=== PATIENT | female | born 2000 | race Caucasian/White ===

== ENCOUNTER 2019-12-17 15:47 | Emergency (ER) | payer OTHER ==
--- NOTE | 2019-12-17 16:14 | EDPHYS ---
Physician Documentation [facility] Name: Chelly Grant Age: 19 yrs Sex: Female : 2000 Arrival Date: 12/17/2019 Time: 15:52 Bed 23 Private MD: ED Physician Emerson Franklin HPI: 12/16 16:07 This 19 yrs old Female presents to ER via Ambulatory with complaints of 22 jmm wks , Vaginal Bleeding, Back Pain, Abdominal Pain. 16:07 The patient presents to the emergency department with abdominal pain, vaginal bleeding. jmm The estimated gestational age is 22 weeks. Associated signs and symptoms: Pertinent positives: back pain. This is a 19 year old female with no chronic medical conditions currently 22 week IUP that presents to the ED with complaints of pelvic cramping, low back pain after passing a blood clot. Denies vomiting, diarrhea, fever. . 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 - Social history:: Smoking status: Patient denies any tobacco usage or history of. Patient/guardian denies using street drugs. ROS: 16:07 Constitutional: Negative for fever, chills, and weight loss, Cardiovascular: Negative jmm for chest pain, palpitations, and edema, Respiratory: Negative for shortness of breath, cough, wheezing, and pleuritic chest pain. 16:07 Abdomen/GI: Positive for abdominal pain. 16:07 : Positive for pelvic pain. 16:07 All other systems are negative. Exam: 16:07 Constitutional: This is a well developed, well nourished patient who is awake, alert, jmm and in no acute distress. Head/Face: atraumatic. Eyes: EOMI, no conjunctival erythema appreciated ENT: Moist Mucus Membranes Neck: Trachea midline, Supple Chest/axilla: Normal chest wall appearance and motion. Cardiovascular: Regular rate and rhythm. No edema appreciated Respiratory: Normal respirations, no respiratory distress appreciated Abdomen/GI: Non distended, soft Back: Normal ROM Skin: General appearance color normal MS/ Extremity: Moves all extremities, no obvious deformities appreciated, no edema noted to the lower extremities Neuro: Awake and alert, normal gait Psych: Behavior is normal, Mood is normal, Patient is cooperative and pleasant 16:07 Abdomen/GI: Inspection: gravid appearance, Bowel sounds: normal, Palpation: soft, nontender, in all quadrants. 16:07 Back: CVA tenderness, is absent. Vital Signs: 16:03 BP 127 / 70; Pulse 75; Resp 17; Temp 98.9; Pulse Ox 97% ; Weight 71.21 kg; Height 5 ft. ll1 4 in. (162.56 cm); Pain 0/10; 16:03 Body Mass Index 26.95 (71.21 kg, 162.56 cm) ll1 MDM: 16:07 Patient medically screened. [facility] 16:07 Data reviewed: vital signs, nurses notes. [facility] 16:07 Counseling: I had a detailed discussion with the patient and/or guardian regarding: the [facility] historical points, exam findings, and any diagnostic results supporting the discharge/admit diagnosis. ED course: Abdomen is benign, VS WNL. Patient is advised to be further evaluation by L and D. . Administered Medications: No medications were administered Disposition: 12/17/19 16:13 Discharged to Home. Impression: Abnormal uterine and vaginal bleeding, unspecified. - Condition is Stable. - Medication Reconciliation Form, Thank You Letter, Antibiotic Education, Prescription Opioid Use form. - Follow up: Private Physician; When: Labor and Delivery; Reason: Recheck today's complaints, Continuance of care, Re-evaluation by your physician. Addendum: 12/18/2019 17:03 Co-signature as Attending Physician, Emerson Franklin MD I agree with the assessment and k dr plan of care. Signatures: Emerson Franklin MD MD [facility] Russell Falk PA PA [facility] Erica Fuller, MATEO RN Zuhair Mayorga RN RN ll1 Corrections: (The following items were deleted from the chart) 12/16 16:19 16:13 12/17/2019 16:13 Discharged to Home. Impression: Abnormal uterine and vaginal hb bleeding, unspecified. Condition is Stable. Forms are Medication Reconciliation Form, Thank You Letter, Antibiotic Education, Prescription Opioid Use. Follow up: Private Physician; When: Labor and Delivery; Reason: Recheck today's complaints, Continuance of care, Re-evaluation by your physician. [facility]
--- NOTE | 2019-12-17 16:14 | ER ---
Nurse's Notes [facility] Name: Chelly Grant Age: 19 yrs Sex: Female : 2000 Arrival Date: 12/17/2019 Time: 15:52 Bed 23 Private MD: Diagnosis: Abnormal uterine and vaginal bleeding, unspecified Presentation: 12/16 16:03 Chief complaint: Patient states: 22 weeks . G1, P0. + movement. Had large ll1 blood clot pass after urinating today. + cramps earlier, non now. Coronavirus screen: Client denies travel out of the [place] in the last 14 days. At this time, the client does not indicate any symptoms associated with coronavirus-19. Ebola Screen: Patient denies travel to an Ebola-affected area in the 21 days before illness onset. Initial Sepsis Screen: Does the patient meet any 2 criteria? No. Patient's initial sepsis screen is negative. Risk Assessment: Do you want to hurt yourself or someone else? Patient reports no desire to harm self or others. Onset of symptoms was December 17, 2019. 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 - Social history:: Smoking status: Patient denies any tobacco usage or history of. Patient/guardian denies using street drugs. Screenin:08 Abuse screen: Denies threats or abuse. Denies injuries from another. Nutritional hb screening: No deficits noted. Tuberculosis screening: No symptoms or risk factors identified. Fall Risk None identified. Assessment: 16:08 General: Appears in no apparent distress. Behavior is calm, cooperative. Pain: Denies hb pain. Neuro: Level of Consciousness is awake, alert, obeys commands, Oriented to person, place, time, situation. Cardiovascular: Capillary refill < 3 seconds Patient's skin is warm and dry. Respiratory: Respiratory effort is even, unlabored, Respiratory pattern is regular, symmetrical. GI: No signs and/or symptoms were reported involving the gastrointestinal system. : Reports vaginal bleeding that is. EENT: No signs and/or symptoms were reported regarding the EENT system. Derm: Skin is pink, warm \T\ dry. Musculoskeletal: No signs and/or symptoms reported regarding the musculoskeletal system. Vital Signs: 16:03 BP 127 / 70; Pulse 75; Resp 17; Temp 98.9; Pulse Ox 97% ; Weight 71.21 kg; Height 5 ft. ll1 4 in. (162.56 cm); Pain 0/10; 16:03 Body Mass Index 26.95 (71.21 kg, 162.56 cm) 1 ED Course: 15:52 Patient arrived in ED. mr 16:05 Triage completed. 1 16:05 Arm band placed on Patient placed in an exam room, on a stretcher. [facility] 16:07 Russell Falk PA is PHCP. [facility] 16:07 Emerson Franklin MD is Attending Physician. [facility] 16:08 Erica Fuller, RN is Primary Nurse. hb 16:08 Patient has correct armband on for positive identification. hb 16:08 No provider procedures requiring assistance completed. Patient did not have IV access hb during this emergency room visit. Administered Medications: No medications were administered Outcome: 16:08 Discharged to via wheelchair to L\T\D hb 16:08 Condition: stable 16:08 Instructed on follow up and referral plans. Demonstrated understanding of instructions, follow-up care. 16:13 Discharge ordered by . [facility] 16:19 Patient left the ED. hb Signatures: Russell Falk PA PA jmm BillFe mr Erica Fuller, RN RN Zuhair Perry RN RN [facility]
== END 2019-12-17 16:19 | disposition home or self-care (01) ==
LOC: ER 15:47
DX: O46.92 Antepartum hemorrhage, unspecified, second trimester (principal); Z3A.22 22 weeks gestation of pregnancy
CPT/HCPCS: 99281